=== PATIENT | male | born 1980 | race Caucasian/White ===

== ENCOUNTER 2017-03-20 18:22 | Emergency (ER) | payer SELFPAY ==
--- NOTE | 2017-03-20 18:43 | NUR ---
PATIENT LEFT WITHOUT BEING SEEN BY DR. THORNE. NO FURTHER CARE PROVIDED FOR PATIENT.
== END 2017-03-20 18:43 | disposition left against medical advice (07) ==
LOC: MED 18:22
DX: Z53.21 Procedure and treatment not carried out due to patient leaving prior to being seen by health care provider (principal)

== ENCOUNTER 2022-04-04 15:20 | Emergency (ER) | payer OTHER ==
[~2022-04-04] VITALS: Ht 152.4 cm; Wt 65.8 kg
[2022-04-04 15:29] VITALS: BP 145/95
[2022-04-04] MEDS ORDERED: LORazepam 1 MG TAB PO ONE (15:35)
--- NOTE | 2022-04-04 15:49 | NUR ---
PT AMBULATED TO ER BED 11
--- NOTE | 2022-04-04 16:20 | NUR ---
C/O AUDITORY HALLUCINATIONS, PT WILL NOT STATE WHAT THE VOICES ARE SAYING. DENIES SI/HI/VH. PT ENDORSED HE TOOK DRUGS BUT WILL NOT DISCLOSE WHAT HE TOOK. PATIENT A&OX4, AMBULATORY, STATES ANXIETY AND "I WAS RECENTLY DEPRESSED." BED LOCKED IN LOWEST POSITION, SIDE RAILS X 1. PMH: SCHIZOPHRENIA, ANXIETY, DEPRESSION MEDS: UNABLE TO OBTAIN ALLERGIES: UNABLE TO OBTAIN; PT STATES "ALL THE PSYCH MEDS."
--- NOTE | 2022-04-04 17:06 | NUR ---
Pt reports minor relief to anxiety symptoms. Patient pacing back and forth in bed; reoriented to situation. States "I can't sit down I need to walk around. I'm waiting to be discharged."
--- NOTE | 2022-04-04 17:30 | NUR ---
Patient left facility without discharge paperwork. Dr. Ann made aware.
== END 2022-04-04 17:30 | disposition home or self-care (01) ==
LOC: MED 15:20
DX: F41.9 Anxiety disorder, unspecified (principal); F19.90 Other psychoactive substance use, unspecified, uncomplicated; F32.A Depression, unspecified; F20.9 Schizophrenia, unspecified
CPT/HCPCS: 99283